=== PATIENT | female | born 1940 | race Caucasian/White ===

== ENCOUNTER → 2020-10-27 08:57 | Outpatient (CLI) | payer OTHER, SELFPAY ==
[2020-10-27 10:03] LABS: Basophils # 0.1 K/mm3 (0-0.2); Basophils % 0.9 % (0.1-2.0); Eosinophils # 0.1 K/mm3 (0.0-0.4); Eosinophils % 2.2 % (0.1-12.0); Hematocrit 43.3 % (37.0-47.0); Hemoglobin 14.5 g/dL (12.2-16.2); Lymphocytes # 2.1 K/mm3 (0.7-4.5); Lymphocytes % 33.2 % (10-50); Mean Corpuscular HGB Conc 33.4 g/dL (31.8-35.4); Mean Corpuscular Hemoglobin 29.6 pg (27.0-31.2); Mean Corpuscular Volume 88.7 fl (81-99); Mean Platelet Volume 7.7 fl (7.4-10.4); Monocytes # 0.6 K/mm3 (0.1-1.0); Monocytes % 9.6 % (1.7-9.3); Neutrophils # 3.4 K/mm3 (1.8-7.8); Neutrophils % 54.1 % (37.0-80.0); Platelet Count 310 K/mm3 (142-424); Red Blood Count 4.89 M/mm3 (4.20-5.40); Red Cell Distribution Width 13.5 % (11.5-17.5); White Blood Count 6.3 K/mm3 (4.8-10.8)
[2020-10-27 10:20] LABS: Hemoglobin A1C 6.7 % (4.0-6.0)
[2020-10-27 11:05] LABS: Alanine Aminotransferase 14 U/L (12-78); Albumin Level 4.3 g/dl (3.5-5.0); Albumin/Globulin Ratio 1.7 (1.1-1.8); Alkaline Phosphatase 62 U/L (38-126); Aspartate Amino Transferase 22 U/L (14-36); Bilirubin,Total 0.9 mg/dl (0.2-1.3); Blood Urea Nitrogen 13 mg/dl (7-17); Calcium 9.5 mg/dl (8.4-10.2); Carbon Dioxide 29 mmol/L (22.0-30.0); Chloride 102 mmol/L (98-107); Chol/HDL Ratio 3.2 (1-3.5); Cholesterol 133 mg/dl (140-200); Estimated Glomerular Filt Rate 96 ml/min (>60); GFR (African American) 117 ML/MIN (>60); Globulin 2.6 g/dL (1.3-3.2); Glucose 135 mg/dl (74-100); HDL Cholesterol 41 mg/dl (40-60); Sodium 142 mmol/L (136-145); Total Protein,Serum 6.9 g/dl (6.3-8.2); Triglycerides 77 mg/dl (30-150); VLDL Cholesterol 15 mg/dL (0-40)
[2020-10-27 11:36] LABS: Thyroid Stimulating Hormone 0.34 uIU/mL (0.465-4.68)
== END ==
PROVIDERS: Visit Provider Family Medicine
DX: E11.69 Type 2 diabetes mellitus with other specified complication (principal)
CPT/HCPCS: 36415; 80053; 80061; 83036; 84443; 85025

== ENCOUNTER 2022-12-20 14:55 | Emergency (ER) | payer MEDICARE, SELFPAY ==
[2022-12-20 15:25] VITALS: BP 196/89; PULSE 86; RESP 20; TEMP 36.8; O2SAT 96; BMI 21.5
--- NOTE | 2022-12-20 15:39 | XR_ITS ---
FINAL REPORT CLINICAL HISTORY: pain in neck FINDINGS: AP and lateral views were obtained. There is no acute fracture. There are moderate to severe degenerative changes. There is mild anterolisthesis of C4 on C5. There is mild retrolisthesis of C5 on C6. IMPRESSION: Moderate to severe degenerative change. Reviewed, Interpreted and Dictated by Chong Vázquez III, MD Transcribed by Satinder Birch Authenticated and [facility]
--- NOTE | 2022-12-20 15:44 | EXP.UTC ---
Discharge Plan Disposition Patient Disposition: Home, Self-Care Condition: Good Prescriptions Prescriptions: New methocarbamol 500 mg tablet 500 mg PO BID PRN (Reason: muscle spasm) Qty: 12 0RF Referrals Follow up/Referrals: Callie Hoffman APRN [Primary Care Provider] - See instructions Activity Restrictions/Add. Instructions Additional Instructions/Restrictions: *Ibuprofen as directed on package with meal as needed for pain/inflammation *Not additional anti-inflammatory like motrin, aleve, advil with the above amount of ibuprofen. You can still take Tylenol every 4 hours as needed if you need something else for pain *Ice 20 minutes every 2 hours for the first 48 hours after the initial injury followed by moist heat every 20 minutes 3-4 times a day to affected area *Muscle relaxer every 12 hours as needed for muscle spasms but remember, it WILL cause drowsiness You cannot take it and drive, operate machinery or care for small children. *Keep this area active, no movement leads to more stiffness, However take it easy and avoid heavy lifting pushing or pulling *Follow up with you family doctor if no improvement for further treatment call office for appointment Over the counter Lidocaine patches may help with pain and discomfort ? Clinical Impressions Clinical Impression: Neck muscle spasm Instructions Patient Instructions: Methocarbamol, Ibuprofen, Lidocaine Transdermal Patch Discharge ED Provider: Jessie Palacios [facility] [place] General Stated complaint: neck pain no accident Mode of Arrival: Ambulatory Source of Information: Patient Limitations: No Limitations Time Seen by Provider: 12/20/22 15:44 Description of Symptoms (Recalled from Triage Doc. by RN): PATIENT C/O POSTERIOR NECK PAIN/STIFFNESS THAT STARTED SEVERAL WEEKS AGO. PATIENT STATES SHE CANNOT TURN NECK SIDE TO SIDE. NO KNOWN INJURY HEENT Symptoms (Recalled from RN notes): No Resp Symptoms (Recalled from RN notes): No Skin Symptoms (Recalled from RN notes): No MS Symptoms (Recalled from RN notes): Yes Functional Status (Recalled from RN notes): WNL History of Present Illness Provider Complaint: Patient states that she has been having pain in the back of her neck for a couple weeks States that it hurts when she tries to turn her head from side to side Denies known injury States that she has been taking advil and it has helped some but today when it was still bothering her she came in Related Data Previous Rx's Medication Instructions Recorded methocarbamol 500 mg tablet 500 mg PO BID PRN muscle spasm #12 12/20/22 tabs Allergies Allergy/AdvReac Type Severity Reaction Status Date / Time Fish Containing Products Allergy Verified 12/20/22 15:43 Worker's Comp Is this a Worker's Comp case?: No [facility] Disclaimer: The information contained in this section may have been updated after the patient was seen, as this information can be updated by other users. Medical History (Updated 12/20/22 @ 17:08 by Jessie Palacios APRN) Diabetes mellitus, type 2 Hypertension Social History Smoking Status: Unknown if ever smoked alcohol intake: never current occupational status: unemployed Travel in the last 8 weeks: None ROS Obtained: Yes All systems reviewed & no additional complaints except as documented and Yes Systems reviewed as appropriate & no additional complaints except as documented Constitutional Constitutional: Reports system reviewed and no additional complaints, except as documented and Reports as per HPI ENT Ears, Nose, Mouth, and Throat: Reports system reviewed and no additional complaints, except as documented and Reports as per HPI Cardiovascular Cardiovascular: Reports system reviewed and no additional complaints, except as documented and Reports as per HPI Respiratory Respiratory: Reports system reviewed and no additional complaints, except as documented and Reports as per HPI Gas
[2022-12-20 17:09] VITALS: BP 196/89; PULSE 86; RESP 20; TEMP 36.8; O2SAT 96
== END 2022-12-20 17:13 | disposition home or self-care (01) ==
PROVIDERS: Emergency Provider Nurse Practitioner; PCP Nurse Practitioner Family
DX: M62.838 Other muscle spasm (principal); M54.2 Cervicalgia; E11.9 Type 2 diabetes mellitus without complications; I10 Essential (primary) hypertension
CPT/HCPCS: 72040; 99204; 99212; G0463

== ENCOUNTER 2023-09-29 19:36 | Emergency (ER) | payer MEDICARE, SELFPAY ==
[2023-09-29 19:38] VITALS: BP 161/72; PULSE 63; RESP 18; TEMP 36.6; O2SAT 98; BMI 19.4
[2023-09-29 19:54] VITALS: BMI 20.7
--- NOTE | 2023-09-29 19:56 | XR_ITS ---
PROCEDURE INFORMATION: Exam: XR Right Hip Exam date and time: 09/29/2023 8:12 PM Age: 82 years old Clinical indication: Injury or trauma; Fall; Blunt trauma (contusions or hematomas); Bilateral; Pelvic region TECHNIQUE: Imaging protocol: Radiologic exam of the right hip. Views: 2 or 3 views hip with pelvis when performed. COMPARISON: No relevant prior studies available. FINDINGS: Bones/joints: Osseous alignment is normal. No acute fracture. Moderate degenerative changes in the lower lumbar spine and pubic symphysis. Soft tissues: Unremarkable. IMPRESSION: No acute fracture
--- NOTE | 2023-09-29 19:57 | XR_ITS ---
PROCEDURE INFORMATION: Exam: XR Right Knee Exam date and time: 09/29/2023 8:15 PM Age: 82 years old Clinical indication: Injury or trauma; Fall; Blunt trauma; Knee; Right TECHNIQUE: Imaging protocol: Radiologic exam of the right knee. Views: 1 or 2 views. COMPARISON: CR XR FEMUR RT 2V 09/29/2023 8:14 PM FINDINGS: Bones/joints: Osseous alignment is normal. No acute fracture. No significant joint fluid. Mild tricompartmental joint space narrowing compatible with mild osteoarthritis. Soft tissues: Normal. Vasculature: Moderate atherosclerotic calcification of the popliteal artery. IMPRESSION: No acute abnormality
--- NOTE | 2023-09-29 19:57 | XR_ITS ---
PROCEDURE INFORMATION: Exam: XR Right Femur Exam date and time: 09/29/2023 8:14 PM Age: 82 years old Clinical indication: Injury or trauma; Fall; Blunt trauma; Thigh or upper leg; Right TECHNIQUE: Imaging protocol: Radiologic exam of the right femur. Views: 2 views. COMPARISON: CR XR HIP RT 2-3V W/PELVIS 09/29/2023 8:12 PM FINDINGS: Bones/joints: Osseous alignment is normal. No acute fracture. Moderate degenerative changes in the pubic symphysis. Diffuse atherosclerotic calcification of the femoral/popliteal arteries. Soft tissues: Unremarkable. IMPRESSION: No acute abnormality. Chronic osseous and atherosclerotic changes noted
--- OUTSIDE RECORDS SUMMARY | 2023-09-29 20:19 | XMS_ITS ---
Author Name Unknown Organization [facility] No information ASSESSMENT No information CHIEF COMPLAINT No information Medications Date Medication Dosage Dosageunit Active Dispense Refills Ndccod e Isprescription Srcstatus 10/17 00:00 :00 Benazepril HCl 40 MG Tablet 1 90 Tablet 1 [id number] Start 10/17 00:00 :00 Benazepril HCl 40 MG Tablet 0 90 Tablet 1 [id number] 803 Stop 10/14 00:00 :00 Benazepril HCl 40 MG Tablet 1 90 Tablet 1 [id number] 803 Continue 04/20 00:00 :00 Levothyroxi ne Sodium 75 MCG Tablet 1 90 Tablet 0 [id number] Start 04/20 00:00 :00 Levothyroxi ne Sodium 75 MCG Tablet 0 90 Tablet 3 [id number] 510 Stop 04/20 00:00 :00 Levothyroxi ne Sodium 75 MCG Tablet 1 90 Tablet 3 [id number] 510 P Refill OBJECTIVE DATA No information PHYSICAL EXAMINATION No information TREATMENT PLAN No information PROBLEMS No information RESULTS No information REVIEW OF SYSTEMS No information SUBJECTIVE DATA No information VITAL SIGNS No information
[2023-09-29 20:28] VITALS: BMI 19.4
--- NOTE | 2023-09-29 21:44 | XR_ITS ---
PROCEDURE INFORMATION: Exam: XR Right Tibia and Fibula Exam date and time: 09/29/2023 9:45 PM Age: 82 years old Clinical indication: Injury or trauma; Fall; Sprain or strain; Lower leg; Right; Additional info: Fall pain TECHNIQUE: Imaging protocol: Radiologic exam of the right tibia and fibula. Views: 2 views. COMPARISON: CR XR KNEE RT 2V 09/29/2023 8:15 PM FINDINGS: Bones/joints: Osseous alignment is normal. No acute fracture. Moderate plantar calcaneal spurring. Mild degenerative changes in the right knee. Soft tissues: Normal. Vasculature: Moderate diffuse atherosclerotic calcification of the popliteal and infrapopliteal arteries. IMPRESSION: No acute abnormality.
--- NOTE | 2023-09-29 21:48 | ED_ITS ---
Discharge Plan Disposition Patient Disposition: Home, Self-Care Chief Complaint: Fall Prescriptions Prescriptions: No Action methocarbamol 500 mg tablet 500 mg PO BID PRN (Reason: muscle spasm) Qty: 12 0RF Referrals Follow up/Referrals: Callie Hoffman APRN [Primary Care Provider] - See instructions Activity Restrictions/Add. Instructions Additional Instructions/Restrictions: No evidence of fracture or dislocation on your hip femur knee or tib-fib location. Please take Tylenol as needed for your symptoms and bear weight as tolerated. Clinical Impressions Clinical Impression: Contusion of right tibia, Fall Discharge ED Provider: Eligio Mena Adult HPI General Chief complaint: Fall Stated complaint: AO 09/29/23 Injury right leg Time Seen by Provider: 09/29/23 20:28 Mode of Arrival: Wheelchair Source of Information: Patient Limitations: Physical Limitations Description of Symptoms (Recalled from ER Triage Doc. by RN): Pt states she had a fall at home in the kitchen. Denies LOC. States her R knee is in pain and she can't bear weight. Pt is A&O*4 at this time., History of Present Illness HPI narrative: 82-year-old presents today with right lower extremity pain after a fall. She states that she was cooking and just lost some of her strength and went down onto her right lower extremity. She states that she is having pain essentially down her entire right lower EXTR remedy from her hip down to her tibia when asked where the majority of pain is to her tibia she has been unable to bear weight since that time. Related Data Previous Rx's Medication Instructions Recorded methocarbamol 500 mg tablet 500 mg PO BID PRN muscle spasm #12 12/20/22 tabs Allergies Allergy/AdvReac Type Severity Reaction Status Date / Time Fish Containing Products Allergy Verified 12/20/22 15:43 [facility] Disclaimer: The information contained in this section may have been updated after the patient was seen, as this information can be updated by other users. Medical History (Updated 09/29/23 @ 21:50 by Eligio Mena MD) Diabetes mellitus, type 2 Hypertension Social History (Updated 12/20/22 @ 17:08 by Jessie Palacios APRN) Smoking Status: Current every day smoker alcohol intake: never current occupational status: unemployed Travel in the last 8 weeks: None ROS Obtained: Yes All systems reviewed & no additional complaints except as documented Physical Exam General General appearance: alert and in no apparent distress Respiratory Respiratory exam: Present normal lung sounds bilaterally Cardiovascular Cardiovascular exam: Present regular rate Extremities Exam Extremities exam: Present other (Patient has normal internal extra rotation of the hip no significant tenderness on my palpation of the proximal femur or hip or knee she is tender over the middle of her anterior tibia there is some ecchymosis in that region neurovascular intact) Neurological Exam Neurological exam: Present alert and oriented X3 Medical Decision Making Dougie Inquiry Pt receiving controlled substance: No Vital Signs: 09/29/23 19:38 Temperature 97.9 F Temperature Source Oral Pulse Rate [Left] 63 Respiratory Rate 18 Blood Pressure [Right Arm] 161/72 H Blood Pressure Mean [Right Arm] 101 02 Sat by Pulse Oximetry 98 Oxygen Delivery Method Room Air Orders (Tests/Meds): ORDERS Category Date Time Status Tibia/fibula XR right 2 views [XR tibia fibula RT 2V] Exams 09/29/23 21:44 Completed Stat XR femur RT 2V Stat Exams 09/29/23 19:57 Completed XR hip RT 2-3V w/pelvis Stat Exams 09/29/23 19:56 Completed XR knee RT 2V Stat Exams 09/29/23 19:57 Completed Medical Decision Narrative: Patient with above history and physical. ANP's were performed and she had x- rays of her hip femur and knee which appears interpreted shows no acute fractures or dislocation however she is maximally tender on her tibia we will add that on and will reassess. X-ray of the tib-fib was performed which shows no fracture or dislocation. She has a contusion over the anterior tibia will get her to ambulate. She will be discharged with the care of her family and supportive care will be discussed. Critical Care Critical Care Time Critical Care Time: No
--- NOTE | 2023-09-29 22:51 | PC.NURSE ---
Attempted to ambulate patient twice with no success, patient was provided ice pack to see if that will help.
--- NOTE | 2023-09-29 23:02 | PC.NURSE ---
Patient on third attempt ambulated to the end of the [address] and then turned around and ambulated back to her room.
--- NOTE | 2023-09-29 23:07 | PC.NURSE ---
Contacted [facility] in regards to trying to get a walker for home use. Waiting for the [employer] analyst to reach back out.
--- NOTE | 2023-09-29 23:48 | PC.NURSE ---
Called [facility] again for a walker. Waiting attraction worker back
[2023-09-30 00:07] VITALS: BP 145/78; PULSE 61; RESP 18; TEMP 36.6; O2SAT 98
== END 2023-09-30 00:07 | disposition home or self-care (01) ==
PROVIDERS: Emergency Provider Student in an Organized Health Care Education/Training Program; PCP Nurse Practitioner Family
DX: S80.11XA Contusion of right lower leg, initial encounter (principal); M79.604 Pain in right leg; W18.30XA Fall on same level, unspecified, initial encounter
CPT/HCPCS: 73502; 73552; 73560; 73590; 99284